=== PATIENT | female | born 1960 | race Caucasian/White ===

== ENCOUNTER → 2016-05-01 | Outpatient (CLI) | payer BC | END | disposition home or self-care (01) | LOC: PCVCIMAG 10:16 | PROVIDERS: ATTEND Internal Medicine Cardiovascular Disease | DX: I65.22 Occlusion and stenosis of left carotid artery (principal); R09.89 Other specified symptoms and signs involving the circulatory and respiratory systems; I77.1 Stricture of artery; E78.00 Pure hypercholesterolemia, unspecified | CPT/HCPCS: 36415; 93005; 93880; 93931 ==

== ENCOUNTER → 2016-06-19 | Outpatient (CLI) | payer BC | END | disposition home or self-care (01) | LOC: PCVCIMAG 14:57 | PROVIDERS: ATTEND Internal Medicine Cardiovascular Disease | DX: I77.1 Stricture of artery (principal); G45.8 Other transient cerebral ischemic attacks and related syndromes; E78.00 Pure hypercholesterolemia, unspecified; E07.9 Disorder of thyroid, unspecified | CPT/HCPCS: 93325; 93351; G0463; 93017 ==

== ENCOUNTER → 2016-06-22 | Outpatient (CLI) | payer BC ==
[~2016-06-22] MED LIST: ASPIRIN 325 MG TABLET ONE; CLOPIDOGREL BISULFATE 75 MG TABLET ONE; DIAZEPAM 10 MG TABLET. ONE; HEPARIN SODIUM 5,000 UNIT/ML VIAL. ONE; HYDROCODONE/APAP 5/325MG TABLET. ONE; IODIXANOL 270 MG/ML 100 ML VIAL. ONE; IV NORMAL SALINE 1000ML BAG 1,000 ML ONE; LIDOCAINE 1% Multi-Dose 20 ML VIAL. ONE; MIDAZOLAM HCL/PF 2 MG/2 ML VIAL. ONE; fentaNYL PF VIAL 100 MCG/2 ML VIAL ONE; hydrALAZINE 20 MG/ML VIAL. ONE
== END | disposition home or self-care (01) ==
LOC: PCVCINTER 07:39
PROVIDERS: ATTEND Nuclear Medicine Nuclear Cardiology
DX: I65.8 Occlusion and stenosis of other precerebral arteries (principal); I70.0 Atherosclerosis of aorta; I70.1 Atherosclerosis of renal artery; G45.8 Other transient cerebral ischemic attacks and related syndromes; I15.0 Renovascular hypertension
CPT/HCPCS: 36215; 36221; 36252; 37236; 75630; 75710; 76937; C1725; C1751; C1760; C1769; C1876; C1894; J0690; J1644; J2250; J3010; J7030; J0360

== ENCOUNTER → 2016-11-16 | Outpatient (CLI) | payer BC ==
--- NOTE | 2016-11-16 23:22 | PCVCIMAG ---
EXAM: ARTERIAL DUPLEX LEFT UPPER EXTREMITY INDICATION: Previous left subclavian artery stent. FINDINGS: Left arm: Satisfactory arterial waveform in the subclavian, axillary, and brachial arteries. No evidence of flow-limiting stenosis. Previous stent proximal left subclavian artery remains patent. IMPRESSION: No flow-limiting arterial stenosis is seen in the left upper extremity. Previous left subclavian artery stent remains patent. LOC:OFFICE
== END | disposition home or self-care (01) ==
LOC: PCVCIMAG 13:40
PROVIDERS: ATTEND Nuclear Medicine Nuclear Cardiology
DX: I70.8 Atherosclerosis of other arteries (principal); E78.00 Pure hypercholesterolemia, unspecified; Z95.828 Presence of other vascular implants and grafts
CPT/HCPCS: 80061; 93931

== ENCOUNTER → 2018-05-07 | Outpatient (CLI) | payer BC ==
--- NOTE | 2018-05-07 12:11 | PCVCIMAG ---
EXAM: ARTERIAL DUPLEX LEFT UPPER EXTREMITY INDICATION: Previous left subclavian artery stent. Peripheral arterial disease. FINDINGS: Left arm: Good arterial waveforms throughout the subclavian, axillary, brachial, radial, and ulnar arteries without evidence of flow-limiting stenosis. Previous stent proximal subclavian artery maintaining good patency. Systolic blood pressure right arm 112 mmHg and left arm 110 mmHg. IMPRESSION: No evidence of significant arterial stenosis in the left upper extremity. Previous left subclavian artery stent maintaining good patency. LOC:[id number]
== END | disposition home or self-care (01) ==
LOC: PCVCIMAG 11:03
PROVIDERS: ATTEND Internal Medicine Cardiovascular Disease
DX: I73.9 Peripheral vascular disease, unspecified (principal); E78.00 Pure hypercholesterolemia, unspecified; I77.1 Stricture of artery
CPT/HCPCS: 93931